=== PATIENT | male | born 1950 | race Caucasian/White ===

== ENCOUNTER 2017-06-01 17:58 | Emergency (ER) | payer MEDICARE, BC ==
[~2017-06-01] VITALS: Ht 172.7 cm; Wt 79.4 kg
[~2017-06-01 17:58] MED LIST: CYCLOBENZAPRINE10 MG ORAL; IBUPROFEN800 M1 PO
[2017-06-01 18:20] VITALS: BP 146/88
[2017-06-01] MEDS ORDERED: ROBAXIN-750750 MG PO (19:29)
[2017-06-01 19:34] VITALS: BP 146/88
--- NOTE | 2017-06-01 19:57 | Emergency Room Report ---
History of Present Illness General Chief Complaint: Pain Source: Patient Present Illness HPI [id number] with 2 days right neck pain, radiating from back of neck to top of right shoulder Worse with movement "known problem to c6, c7" and history of arthritis Taking Celebrex, motrin, flexeril with mild improvement Denies trauma Allergies: Coded Allergies: No Known Allergies (Unverified , 06/01/17) Patient History Past Medical History: see triage record Past Surgical History: none Pertinent Family History: none Immunizations: UTD Reviewed Nursing Documentation: PMH: Agreed, PSxH: Agreed Nursing Documentation-PMH Past Medical History: No History, Except For Hx Cancer: Yes - PROSTATE Review of Systems All Other Systems: negative except mentioned in HPI Physical Exam Vital Signs Date Time Temp Pulse Resp B/P (MAP) Pulse Ox O2 Delivery O2 Flow Rate FiO2 06/01/17 18:10 97.5 95 20 146/88 99 Room Air Sp02 EP Interpretation: reviewed, normal General Appearance: normal inspection, well appearing, no apparent distress, alert, GCS 15, non-toxic Head: normocephalic, atraumatic Eyes: bilateral eye PERRL, bilateral eye EOMI ENT: normal ENT inspection, hearing grossly normal, normal pharynx, no angioedema, normal voice, TMs + canals normal, uvula midline, moist mucus membranes Neck: normal inspection, full range of motion, supple, thyroid normal, no meningismus, no bony tend, other - TTP to right paravertebral area, tender Respiratory: normal inspection, lungs clear, normal breath sounds, no rhonchi, no respiratory distress, no retraction, no accessory muscle use, no wheezing, speaking full sentences Cardiovascular #1: regular rate, rhythm, no edema, no JVD, normal capillary refill Gastrointestinal: normal inspection, normal bowel sounds, non tender, soft, no mass, no peritonitis, non-distended, no guarding, no hernia, no pulsatile mass Genitourinary: no CVA tenderness Musculoskeletal: normal inspection, back normal, normal range of motion, no calf tenderness, pelvis stable, Milana's Sign negative Neurologic: normal inspection, alert, oriented x3, responsive, risk control product liability director III-XII nml as tested, motor strength/tone normal, cerebellar normal, normal gait, speech normal Psychiatric: normal inspection, judgement/insight normal, mood/affect normal, no suicidal/homicidal ideation, no delusions Skin: normal inspection, normal color, no rash Lymphatic: normal inspection, no adenopathy Medical Decision Making Diagnostic Impression: Primary Impression: Neck pain ER Course Right sided neck pain, likley nerve impingement from known C6/7 arthritis Recommended STOP ibuprofen - only take Celebrex as Rx-ed from Ortho Recommended ice therapy Rx Robaxin Close PMD/Ortho followup yo M F with DDX: Plan: Obtain labs, ua, ucx, ucg, CXR, EKG ER course: Patient has remained stable during ED stay. Disposition: Patient is to be discharged to home. Prescriptions given are robaxin Patient is instructed to follow up with their primary care doctor within 5 days. Strict return precautions discussed with patient such as fever, chills, worsening/severe pain, nausea, vomiting, which may indicate severe illness. Patient verbalizes understanding and agrees with plan. Please note that this Emergency Department Report was dictated using [employer] toe buffer technology software, occasionally this can lead to erroneous entry secondary to interpretation by the dictation equipment Last Vital Signs Date Time Temp Pulse Resp B/P (MAP) Pulse Ox O2 Delivery O2 Flow Rate FiO2 06/01/17 19:34 97.5 20 146/88 99 Room Air 06/01/17 18:10 95 Status: improved Disposition: HOME, SELF-CARE Condition: Improved Scripts Methocarbamol* (ROBAXIN-750*) 750 Mg Tablet 750 MG PO TID for 7 Days, #30 TAB 0 Refills Prov: JESS HUFFMAN M.D. 06/01/17 Referrals: NON PHYSICIAN (PCP) Patient Instructions: Cervical Sprain, [id number] Additional Instructions: - Take celebrex but NOT ibuprofen - Take Robaxin up to 3x a day - Apply ice to back of neck 3-4x a day JESS HUFFMAN M.D. Jun 01, 2017 19:57
== END 2017-06-01 19:44 | disposition home or self-care (01) ==
LOC: EMR 19:25
DX: M54.2 Cervicalgia (principal); Z85.46 Personal history of malignant neoplasm of prostate
CPT/HCPCS: 99283

== ENCOUNTER 2020-02-18 16:37 | Emergency (ER) | payer MEDICARE, BC ==
[~2020-02-18] VITALS: Ht 170.2 cm; Wt 81.6 kg
[~2020-02-18 16:37] MED LIST changes: +ROBAXIN-750750 MG PO
[2020-02-18] MEDS ORDERED: XTANDI40 MG ORAL (16:45)
[2020-02-18 16:56] VITALS: BP 126/87
[2020-02-18] MEDS ORDERED: Acetaminophen 500mg (ES) tab ORAL ONE ×2 (17:19→17:30)
--- NOTE | 2020-02-18 17:45 | Diagnostic Imaging Report ---
EXAM: XR Right Shoulder Complete, 2 or More Views CLINICAL HISTORY: PAIN TECHNIQUE: Two or more views of the right shoulder. COMPARISON: No relevant prior studies available. FINDINGS: Bones/joints: Avulsion fraction of the greater tuberosity. Normal glenohumeral and acromial clavicular alignment. Mild degenerative changes at the acromioclavicular joint. Soft tissues: Unremarkable. IMPRESSION: Avulsion fraction of the greater tuberosity.
[2020-02-18] MEDS ORDERED: ACETAMINOPHEN-1 EAC1 ORAL ×3 (18:00→18:08)
[2020-02-18 18:29] VITALS: BP 123/82
[2020-02-18] MEDS ORDERED: Morphine Sulfate 4mg/ml Inj (IV USE ONLY) ONE (18:39)
[2020-02-18] MEDS ORDERED: Morphine Sulfate 2mg/ml Inj(IV/IM USE ONLY) IM ONE (18:45)
--- NOTE | 2020-02-18 20:39 | Emergency Room Report ---
History of Present Illness General Chief Complaint: Upper Extremity Injury Source: Patient Present Illness HPI 69-year-old male presents for right shoulder pain. States that he tripped and fell today when using the stairs. Denies hitting his head or LOC. Complaining of pain to his right shoulder. Dull, 9 out of 10, nonradiating. Unable to move the shoulder on his own. Denies any other injuries. No other aggravating relieving factors. Denies any other associated symptoms Allergies: Coded Allergies: No Known Allergies (Unverified , 06/01/17) COVID-19 Screening Contact w/high risk pt: No Experienced COVID-19 symptoms?: No COVID-19 Testing performed WORK ORDER DETAILER: No Patient History Past Medical History: other - prostate ca Past Surgical History: none Pertinent Family History: none Social History: Denies: smoking, alcohol use, drug use Immunizations: UTD Reviewed Nursing Documentation: PMH: Agreed; PSxH: Agreed Nursing Documentation-PMH Past Medical History: No History, Except For Hx Cancer: Yes - PROSTATE Review of Systems All Other Systems: negative except mentioned in HPI Physical Exam Vital Signs Date Time Temp Pulse Resp B/P (MAP) Pulse Ox O2 Delivery O2 Flow Rate FiO2 02/18/20 16:42 96.4 85 18 128/81 (97) 95 Room Air Sp02 EP Interpretation: reviewed, normal General Appearance: no apparent distress, alert, GCS 15, non-toxic Head: normocephalic, atraumatic Eyes: bilateral eye normal inspection, bilateral eye PERRL ENT: hearing grossly normal, normal pharynx, no angioedema, normal voice Neck: full range of motion, supple/symm/no masses Respiratory: chest non-tender, lungs clear, normal breath sounds, speaking full sentences Cardiovascular #1: regular rate, rhythm, no edema Cardiovascular #2: 2+ carotid (R), 2+ carotid (L), 2+ radial (R), 2+ radial (L), 2+ dorsalis pedis (R), 2+ dorsalis pedis (L) Gastrointestinal: normal bowel sounds, non tender, soft, non-distended, no guarding, no rebound Rectal: deferred Genitourinary: normal inspection, no CVA tenderness Musculoskeletal: back normal, normal range of motion, gait/station normal, tender - R shoulder Neurologic: alert, motor strength/tone normal, oriented x3, sensory intact, responsive, speech normal Psychiatric: judgement/insight normal, memory normal, mood/affect normal, no suicidal/homicidal ideation Reflexes: 3+ bicep (R), 3+ bicep (L), 3+ tricep (R), 3+ tricep (L), 3+ knee (R), 3+ knee (L) Skin: no rash Lymphatic: no adenopathy Procedures Splinting Splinting : Consent: Verbal Pre-Made Type: sling Pre-Proc Neuro Vasc Exam: normal Post-Proc Neuro Vasc Exam: normal Patient Tolerated: Well Complications: None Medical Decision Making Diagnostic Impression: Primary Impression: Humeral head fracture Qualified Codes: S42.291A - Other displaced fracture of upper end of right humerus, initial encounter for closed fracture ER Course Hospital Course 69-year-old male presents with right shoulder pain status post fall Differential diagnoses include: Fracture, dislocation, sprain, contusion Clinical course Patient placed on stretcher. After initial history and physical, I ordered pain medications and Xrays of R shoulder During my assessment there was question of whether patient hit his head. Offere d option for CT head and he declined. Xrays read shows avulsion fracture of the tuberosity. Placed in shoulder sling. Discussed findings with patient. Recommend close follow-up with orthopedics. I will provide referrals Patient became upset because he continued to have pain. However patient declined pain meds. Is asking for medication to take with him home and refuses to go to the pharmacy. Asked for cortisone injection which we do provide here. Patient ultimately agreed to a morphine IM injection for pain. Diagnosis - humeral head fx Stable and discharged to home with prescription for Tylenol #3. apply ice, keep elevated. weight bear as tolerated. Followup with PMD. Return to ED if symptoms recur or worsen Other X-Ray Diagnostic Results Other X-Ray Diagnostic Results : X-Ray ordered: R shoulder # of Views/Limited Vs Complete: 3 View Indication: Pain EP Interpretation: Yes Interpretation: no dislocation, no soft tissue swelling, other - avulsion fx of tuberosity Impression: Other - fx Electronically Signed by: Electronically signed by Mynor Smith MD Last Vital Signs Date Time Temp Pulse Resp B/P (MAP) Pulse Ox O2 Delivery O2 Flow Rate FiO2 02/18/20 18:55 96.4 02/18/20 18:29 81 17 123/82 99 Room Air Status: improved Disposition: HOME, SELF-CARE Condition: Stable Scripts Acetaminophen With Codeine (T#3) (TYLENOL #3 TAB*) Y Tab 1 TAB ORAL Q4H PRN for For Pain, #12 TAB Prov: Mynor Smith MD 02/18/20 Referrals: Chiki Ramesh MD NOT CHOSEN [facility]/MD,REFERRING (PCP) Patient Instructions: Shoulder Fracture (Proximal Humerus or Glenoid)-[facility] Mynor Smith MD Feb 18, 2020 20:39
== END 2020-02-18 18:30 | disposition home or self-care (01) ==
LOC: EMR 17:12
DX: S42.291A Other displaced fracture of upper end of right humerus, initial encounter for closed fracture (principal); W01.0XXA Fall on same level from slipping, tripping and stumbling without subsequent striking against object, initial encounter; Y92.9 Unspecified place or not applicable; Z85.46 Personal history of malignant neoplasm of prostate
CPT/HCPCS: 73030; 96372; 99283; J2270